=== PATIENT | female | born 2000 | race Caucasian/White ===

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

== ENCOUNTER → 2020-01-19 | Outpatient (CLI) | payer BC, OTHER ==
[~2020-01-19] MED LIST changes: +CEPH500 PO; +IBUP600 PO
[2020-01-19 14:12] LABS: Influenza A Negative (NEGATIVE); Influenza B Negative (NEGATIVE)
== END | disposition home or self-care (01) ==
LOC: LAB 12:30 → LAB SHORT 12:30
PROVIDERS: Family Medicine
DX: R05 Cough (principal)
CPT/HCPCS: 87804

== ENCOUNTER 2025-07-01 20:24 | Emergency (ER) | payer OTHER ==
[~2025-07-01] VITALS: Ht 172.7 cm; Wt 95.2 kg
[2025-07-01 20:42] VITALS: BP 154/90
[2025-07-01] MEDS ORDERED: Ketorolac Tromethamine 15mg Vial IM ONE (22:45)
== END 2025-07-01 23:11 | disposition home or self-care (01) ==
LOC: ER 20:24
DX: S82.65XA Nondisplaced fracture of lateral malleolus of left fibula, initial encounter for closed fracture (principal); F17.210 Nicotine dependence, cigarettes, uncomplicated; V28.49XA Other motorcycle driver injured in noncollision transport accident in traffic accident, initial encounter; Z88.0 Allergy status to penicillin
CPT/HCPCS: 29515; 73610; 73630; 96372-59; 99283-25; J1885